=== PATIENT | female | born 1940 | race Caucasian/White ===

== ENCOUNTER 2016-06-13 16:16 | Emergency (ER) | payer MEDICARE, OTHER ==
[~2016-06-13] VITALS: Ht 167.6 cm; Wt 62.1 kg
[~2016-06-13 16:16] MED LIST: FLUT1SPR9; ZITH250T PO
[2016-06-13 16:29] VITALS: BP 139/69; PULSE 69; RESP 16; TEMP 98.1; O2SAT 100
--- NOTE | 2016-06-13 17:27 | PD ---
HPI Chief Complaint: Injury Time Seen by Provider: 17:24 Travel History International Travel<30 days: No Contact w/Intl Traveler<30days: No Traveled to known affect area: No History of Present Illness HPI Patient is a 76-year-old female presenting with left foot pain. She states 3 days ago a metal vase fell off of a table onto her bare foot. She has some minor abrasions which are healing well. She denies any inability bear weight but states it is painful to do so. The dorsum of the foot is painful to touch. She denies any increasing pain, redness, warmth or drainage. She denies any pain in the ankle or leg. She denies any weakness or paresthesias. Last tetanus vaccine greater than 5 years. PFSH Past Medical History Asthma: Yes Respiratory: Yes (asthma) ?: Not Past Surgical History Section: Yes Social History Alcohol Use: No Tobacco Use: No ( A TEEN) Substance Use: No Allergies-Medications (Allergen,Severity, Reaction): Coded Allergies: Codeine (Verified Allergy, Severe, tongue swells, 06/13/16) Reported Meds & Prescriptions Reported Meds & Active Scripts Active Zithromax Z-Antoine (Azithromycin) 250 Mg Tab 250 Mg PO DIRECTED 5 Days 500 MG (2 TABLETS) PO ON DAY 1, THEN 250 MG (1 TABLET) PO ON DAYS 2 TO 5. Reported Flonase Allergy Relief (Fluticasone Propionate (Nasal)) 50 Mcg/Act Spr Review of Systems General / Constitutional: No: Fever, Chills Musculoskeletal: Positive: Other (see the history of present illness) Skin: Positive Other (abrasions left foot) Neurologic: No: Weakness, Focal Abnormalities, Paresthesia, Sensory Disturbance Physical Exam Narrative GENERAL: Well-developed and well-nourished adult female in no acute distress. SKIN: Multiple small, shallow well-healing abrasions without signs of cellulitis to the dorsum of the left foot. Warm and dry. Good turgor without tenting. HEAD: Normocephalic and atraumatic. EYES: PERRL bilaterally, 5mm. EOMI bilaterally. No injection or icterus present. No proptosis. Lids without edema or erythema. CARDIOVASCULAR: Regular rate and rhythm without murmurs, rubs, clicks or gallops. Dorsalis pedis and posterior tibial pulses 2+ bilaterally. Cap refill less than 2 seconds distal to all toes of left foot. No pedal edema. RESPIRATORY: Clear to auscultation bilaterally with symmetrical rise and fall, no distress or use of accessory muscles. MUSCULOSKELETAL: Abrasions to left foot per above. There is tenderness from palpation of the navicular bone of fifth metatarsal the left foot resolving ecchymosis, no edema, erythema or warmth. No creased laxity of the foot or ankle. No pain with palpation of medial lateral malleoli of the left ankle. Patient can move all 5 toes of left foot. Patient freely moving all four extremities spontaneously. Extremities without clubbing, cyanosis, or edema. No obvious deformities. NEUROLOGIC: CN II-XII grossly intact. Awake and alert. Motor grossly within normal limits. Sensation intact to the distal tip of all 5 toes of left foot. Normal speech. PSYCHIATRIC: Appropriate mood and affect; insight and judgment normal. Data Data Last Documented VS Vital Signs Date Time Temp Pulse Resp B/P Pulse Ox O2 Delivery O2 Flow Rate FiO2 06/13/16 16:29 98.1 69 16 139/69 100 Orders Tetanus/Diphtheria Tox Adult (Tetanus/Di (06/13/16 17:30) Foot, Complete ([id number]) (06/13/16 17:23) [facility] Medical Decision Making Medical Screen Exam Complete: Yes Emergency Medical Condition: Yes Interpretation(s) Last 24 hours Impressions Foot X-Ray 06/13/16 1723 Signed Impressions: Service Date/Time: Monday, June 13, 2016 17:26 - CONCLUSION: No acute bony abnormality. Bi Sutton MD Differential Diagnosis Foot abrasion versus foot contusion versus fracture Narrative Course Patient is a 76-year-old female presenting with abrasion and blunt trauma to the dorsum of the left foot 3 days prior. She has been weightbearing and denies any weakness or paresthesias, is neurovascularly intact. No clear signs of fracture on exam. Raisins are healing well. Tetanus vaccine is updated today. Ordered x-ray of the foot which showed no evidence of fracture subluxation. Patient has an Ignacio wrap REAPPLIED and gave her prescription for tramadol for the pain.See discharge paperwork for further instructions. The plan was discussed with the patient who acknowledged their understanding and agreement. Reinforced the follow-up with primary care is critically important. Patient instructed on emergent conditions that should prompt return to ED. Diagnosis Primary Impression: Contusion of left foot Qualified Code: S90.32XA - Contusion of left foot, initial encounter Additional Impression: Abrasion foot/toe Patient Instructions: Abrasion (ED), Contusion in Adults (ED), General Instructions Additional Instructions: Take medications as prescribed Your medications may cause drowsiness. Do not take with alcohol or sedatives. Do not operate a motor vehicle or heavy machinery while on medication. Apply ice every 1 to 2 hours as needed for pain Avoid maneuvers that aggravate pain Keep IGNACIO bandage on while being active or using extremity Use crutches when walking to avoid pressure on joint Elevate when at rest Be aware that may take several weeks for sprains to heal fully Follow-up with PCP in 2-3 days Return to the ED for any acute worsening of symptoms Med/Other Pt SpecificInfo: Prescription(s) given Scripts Tramadol 50 Mg Tab50 Mg PO Q6H PRN (PAIN) #12 TAB Ref 0 Prov:Markus Barnett MD 06/13/16 Disposition: 01 DISCHARGE HOME Condition: Stable Jamil Davis III Jun 13, 2016 17:27
[2016-06-13] MEDS ORDERED: TETANUS/DIPHTHERIA TOXOID ADULT 0.5 ML VIAL IM ONE (17:30)
--- NOTE | 2016-06-13 17:37 | RADHPO ---
EXAM DATE/TIME: 06/13/2016 17:26 [facility] COMPARISON: No previous studies available for comparison. INDICATIONS : Left foot pain. Patient states a metal vase fell on her foot three days ago. MEDICAL HISTORY : None. SURGICAL HISTORY : None. ENCOUNTER: Initial ACUITY: 3 days PAIN SCORE: 6/10 LOCATION: Left foot. FINDINGS: Three view examination of the left foot demonstrates no soft tissue swelling, dislocation, or fractur e. The tarsal bones appear intact. The interphalangeal and metatarsophalangeal joints are intact. The calcaneus is intact. Bony mineralization is normal. CONCLUSION: No acute bony abnormality. Bi Sutton MD on June 13, 2016 at 17:35 Board Certified Radiologist. This report was verified electronically.
[2016-06-13] MEDS ORDERED: TRAM50TA PO ×2 (18:03→18:07)
== END 2016-06-13 18:16 | disposition home or self-care (01) ==
LOC: PHED 16:16 → PHEFT 18:16
DX: S90.32XA Contusion of left foot, initial encounter (principal); W20.8XXA Other cause of strike by thrown, projected or falling object, initial encounter; J45.909 Unspecified asthma, uncomplicated; Z23 Encounter for immunization
CPT/HCPCS: 73630; 90471; 90714